=== PATIENT | male | born 1955 | race Caucasian/White ===

== ENCOUNTER 2021-07-06 10:38 | Emergency (ER) | payer MEDICAID ==
[~2021-07-06] VITALS: Ht 180.3 cm; Wt 86.0 kg
[2021-07-06] MEDS ORDERED: ONDANSETRON HCL 4MG/2ML INJ IV STA (11:07)
[2021-07-06] MEDS ORDERED: SODIUM CHLORIDE 0.9% 1,000 ML IV ONE ×3 (11:15→14:30)
[2021-07-06 11:40] LABS: HEMATOCRIT. 43.9 % (42.0-52.0); MEAN CORPUSCULAR HEMOGLOBIN 32.5 pg (28.0-32.0); MEAN PLATELET VOLUME 9.1 fl (7.4-10.4); PLATELET 182 x1000/uL (130-400); RED BLOOD CELL COUNT 4.62 mill/uL (4.7-6.1)
[2021-07-06 11:43] LABS: CLARITY URINE CLEAR (CLEAR); COLOR URINE ORANGE (YELLOW); KETONES URINE 4+ (NEGATIVE); LEUKOCYTE ESTERASE URINE 1+ (NEGATIVE); NITRITE URINE POSITIVE (NEGATIVE); OCCULT BLOOD URINE 2+ (NEGATIVE); PROTEIN URINE 2+ (NEGATIVE); SPECIFIC GRAVITY URINE 1.029 (1.005-1.030)
[2021-07-06 11:45] LABS: CHLORIDE 105 mEq/L (98-107)
[2021-07-06] MEDS ORDERED: MORPHINE SULFATE 4 MG/ML CPJ (NOT FOR IM USE) IV ONE ×3 (11:45→20:30)
[2021-07-06 11:49] LABS: PROTHROMBIN TIME 11.2 sec (9.6-11.0)
[2021-07-06] MEDS ORDERED: PIPERACILLIN/TAZOBACTAM 3.375GM/50ML PREMIX IV NR (12:30)
[2021-07-06 13:03] LABS: PLATELET ESTIMATE NORMAL
[2021-07-06] MEDS ORDERED: IOHEXOL-300 100 ML BOTTLE ONE (13:13)
[2021-07-06 21:35] VITALS: BP 132/75
== END 2021-07-06 22:02 | disposition short-term general hospital (02) ==
LOC: ER 10:38
DX: K81.0 Acute cholecystitis (principal); E86.0 Dehydration; Z20.822 Contact with and (suspected) exposure to COVID-19; Z98.890 Other specified postprocedural states
CPT/HCPCS: 36415; 74177; 76705; 80053; 81003; 83605; 83690; 85025; 85610; 87040; 87426; 93005; 96361; 96365; 96375; 96376; 99285; J2270; J2405; J2543; J7030; Q9967; 96374